=== PATIENT | female | born 1985 | race Caucasian/White ===

== ENCOUNTER → 2016-09-06 | Outpatient (REF) | payer OTHER ==
[~2016-09-06] MED LIST: DEPA250T32 PO; DEPA500T2 PO; EFFEXOR XR PO; VENL37TA FT; VITAMIND PO; effexor PO
[2016-09-06 14:15] LABS: BASO % 0.3 % (0.0-1.0); EOS # 0.1 K/mm3 (0.0-0.50); EOS % 2.3 % (0.0-3.0); LYMPH # 1.6 K/mm3 (1.5-6.5); LYMPH % 31.1 % (24.0-44.0); MEAN CORPUSCULAR HEMOGLOBIN 31.3 pg (27.0-33.0); MEAN CORPUSCULAR HGB CONC 34.3 g/dl (32.0-36.5); MEAN CORPUSCULAR VOLUME 91.3 fl (80.0-96.0); MONO # 0.4 K/mm3 (0.0-0.8); MONO % 7.5 % (0.0-5.0); NEUTROPHILS # 2.9 K/mm3 (1.8-7.7); NEUTROPHILS % 57.1 % (36.0-66.0); RED CELL DISTRIBUTION WIDTH 12.8 % (11.5-14.5); RETIC HEMOGLOBIN CONTENT CHr 32.9 PG (24-36); RETICULOCYTE % ADVIA2120 2.4 % (0.5-1.5)
[2016-09-06 14:32] LABS: PROGESTERONE 7.6 NG/ML
[2016-09-06 14:33] LABS: FOLATE 20.1 NG/ML (>5.4); VITAMIN B12 LEVEL 419 PG/ML (247-911)
[2016-09-06 14:49] LABS: ALBUMIN 4.4 GM/DL (3.2-5.2); ALBUMIN/GLOBULIN RATIO 1.63 (1.00-1.93); ALKALINE PHOSPHATASE 53 U/L (45-117); ALT/SGPT 21 U/L (12-78); ANION GAP 9 MEQ/L (8-16); AST/SGOT 14 U/L (15-37); BILIRUBIN,TOTAL 0.4 MG/DL (0.2-1.0); BLOOD UREA NITROGEN 10 MG/DL (7-18); CARBON DIOXIDE LEVEL 26 MEQ/L (21-32); CHLORIDE LEVEL 107 MEQ/L (98-107); CHOLESTEROL LEVEL 162 MG/DL (<200); CREATININE FOR GFR 0.74 MG/DL (0.55-1.02); FERRITIN 13 NG/ML (8-252); GLOMERULAR FILTRATION RATE > 60.0 (>60); GLUCOSE, FASTING 76 MG/DL (70-105); POTASSIUM SERUM 4.4 MEQ/L (3.5-5.1); SODIUM LEVEL 142 MEQ/L (136-145); TOTAL IRON BINDING CAPACITY 349 UG/DL (250-450); TOTAL PROTEIN 7.1 GM/DL (6.4-8.2); TRIGLYCERIDES LEVEL 51 MG/DL (<150)
[2016-09-07 09:04] LABS: THYROID PEROXIDASE ANTIBODY < 28.0 U/ML (<60.0)
[2016-09-10 00:16] LABS: SEX HORMONE BINDING GLOBULIN 88.5 nmol/L (24.6-122.0)
== END ==
LOC: M LABDRWAD 13:22
PROVIDERS: ATTEND Nurse Practitioner Family
DX: E03.9 Hypothyroidism, unspecified (principal); R53.83 Other fatigue

== ENCOUNTER → 2017-01-19 | Outpatient (REF) | payer OTHER | LOC: M SFHCWAGY 14:24 | PROVIDERS: ATTEND Nurse Practitioner Women's Health | DX: Z12.4 Encounter for screening for malignant neoplasm of cervix (principal); R87.610 Atypical squamous cells of undetermined significance on cytologic smear of cervix (ASC-US) ==

== ENCOUNTER → 2017-01-26 | Outpatient (REF) | payer OTHER ==
[2017-01-26 13:04] LABS: PROLACTIN 13.7 NG/ML
[2017-01-26 17:06] LABS: FREE T4 1.13 NG/DL (0.76-1.46)
[2017-02-02 14:13] LABS: 17 HYDROXY PROGESTERONE 59 ng/dL (.)
== END ==
LOC: M LABDRWAD 12:13
PROVIDERS: ATTEND Internal Medicine Endocrinology, Diabetes & Metabolism
DX: E03.9 Hypothyroidism, unspecified (principal); E27.8 Other specified disorders of adrenal gland

== ENCOUNTER → 2017-01-27 | Outpatient (REF) | payer OTHER | LOC: M LABDRWAD 12:18 | PROVIDERS: ATTEND Internal Medicine Endocrinology, Diabetes & Metabolism | DX: E27.8 Other specified disorders of adrenal gland (principal); E03.9 Hypothyroidism, unspecified ==

== ENCOUNTER → 2017-04-02 | Outpatient (REF) | payer OTHER | LOC: M LAB REF 09:06 | PROVIDERS: ATTEND Physician Assistant Medical | DX: J02.9 Acute pharyngitis, unspecified (principal) ==

== ENCOUNTER → 2017-04-11 | Outpatient (CLI) | payer OTHER ==
--- NOTE | 2017-04-11 15:55 | REP ---
PA and lateral chest: There are no comparisons. The lung pierce are clear. The cardiac size is normal The sima, mediastinum, and bony thorax are unremarkable. Impression: Negative PA and lateral chest. Signed by Horace Smith MD 04/11/2017 03:47 P
[2017-04-11 21:25] LABS: BASO % 0.4 % (0.0-1.0); EOS # 0.2 10^3/uL (0.0-0.50); IMMATURE GRANULOCYTE % 0.3 % (0-0); LYMPH # 2.1 10^3/uL (1.5-4.5); LYMPH % 26.3 % (24.0-44.0); MEAN CORPUSCULAR HEMOGLOBIN 30.7 pg (27.0-33.0); MEAN CORPUSCULAR HGB CONC 33.7 g/dl (32.0-36.5); MEAN CORPUSCULAR VOLUME 91.3 fl (80.0-96.0); MONO # 0.7 10^3/uL (0.0-0.8); MONO % 9.4 % (0.0-5.0); NEUTROPHILS # 4.8 10^3/uL (1.8-7.7); NEUTROPHILS % 60.6 % (36.0-66.0); PLATELET COUNT, AUTOMATED 275 10^3/uL (150-450); RED CELL DISTRIBUTION WIDTH 12.9 % (11.5-14.5); WHITE BLOOD COUNT 7.9 10^3/uL (4.0-10.0)
[2017-04-11 21:32] LABS: ADD MORPHOLOGY? NO
[2017-04-12 08:27] LABS: CONTROL LINE MONO RF C INT CTR LINE PRESENT
== END ==
LOC: M ADAMS 14:24
PROVIDERS: ATTEND Physician Assistant Medical
DX: J21.9 Acute bronchiolitis, unspecified (principal)

== ENCOUNTER → 2017-08-08 | Outpatient (REF) | payer OTHER ==
[2017-08-08 12:32] LABS: HEMATOCRIT 41.2 % (36.0-47.0); HEMOGLOBIN 13.5 g/dl (12.0-16.0); MEAN CORPUSCULAR HEMOGLOBIN 29.5 pg (27.0-33.0); MEAN CORPUSCULAR HGB CONC 32.8 g/dl (32.0-36.5); MEAN CORPUSCULAR VOLUME 90.2 fl (80.0-96.0); PLATELET COUNT, AUTOMATED 238 10^3/uL (150-450); RED BLOOD COUNT 4.57 10^6/uL (4.00-5.40); RED CELL DISTRIBUTION WIDTH 13.1 % (11.5-14.5); WHITE BLOOD COUNT 4.7 10^3/uL (4.0-10.0)
[2017-08-08 12:58] LABS: ALBUMIN 4.4 GM/DL (3.2-5.2); ALBUMIN/GLOBULIN RATIO 1.69 (1.00-1.93); ALKALINE PHOSPHATASE 51 U/L (45-117); ALT/SGPT 19 U/L (12-78); ANION GAP 6 MEQ/L (8-16); AST/SGOT 11 U/L (7-37); BILIRUBIN,TOTAL 0.4 MG/DL (0.2-1.0); BLOOD UREA NITROGEN 8 MG/DL (7-18); CALCIUM LEVEL 9.2 MG/DL (8.5-10.1); CARBON DIOXIDE LEVEL 30 MEQ/L (21-32); CHLORIDE LEVEL 107 MEQ/L (98-107); CREATININE FOR GFR 0.68 MG/DL (0.55-1.30); GLOMERULAR FILTRATION RATE > 60.0 (>60); GLUCOSE, FASTING 78 MG/DL (70-100); POTASSIUM SERUM 4.1 MEQ/L (3.5-5.1); SODIUM LEVEL 143 MEQ/L (136-145)
[2017-08-08 13:04] LABS: CORTISOL BASELINE 19.5 UG/DL (4.3-22.4)
[2017-08-10 00:07] LABS: DEAMIDATED GLIADIN ABS, IgA 3 units (0-19); DEAMIDATED GLIADIN ABS, IgG 2 units (0-19); ENDOMYSIAL ANTIBODY IgA Negative (Negative); IMMUNOGLOBULIN A 157 mg/dL (87-352); t-TRANSGLUTAMINASE(tTG) IgA <2 U/mL (0-3); t-TRANSGLUTAMINASE(tTG) IgG <2 U/mL (0-5)
== END ==
LOC: M LABDRAW1 10:51
DX: R53.83 Other fatigue (principal)

== ENCOUNTER → 2017-08-08 | Outpatient (REF) | payer OTHER | LOC: M LABDRAW1 12:03 | DX: R53.83 Other fatigue (principal) ==

== ENCOUNTER → 2018-01-22 | Outpatient (REF) | payer BC ==
[2018-01-25 14:41] LABS: HPV HYBRID CAPTURE II Negative (Negative)
== END ==
LOC: M SFHCWAGY 09:34
DX: Z12.4 Encounter for screening for malignant neoplasm of cervix (principal)
CPT/HCPCS: G0123